=== PATIENT | female | born 1980 | race Caucasian/White ===

== ENCOUNTER → 2017-01-27 | Outpatient (CLI) | payer BC, OTHER | LOC: BRMIMAGING 13:55 | PROVIDERS: ATTEND Nurse Practitioner Women's Health | DX: R10.2 Pelvic and perineal pain (principal) | CPT/HCPCS: 76856-PO ==

== ENCOUNTER → 2018-08-11 | Outpatient (CLI) | payer BC | LOC: FIMAGING 12:30 | PROVIDERS: ATTEND Family Medicine | DX: K59.00 Constipation, unspecified (principal) ==

== ENCOUNTER → 2018-09-06 | Outpatient (CLI) | payer BC | LOC: BRMIMAGING 07:57 | DX: R10.2 Pelvic and perineal pain (principal) | CPT/HCPCS: 76856-PO ==